=== PATIENT | female | born 1950 | race Caucasian/White ===

== ENCOUNTER 2017-06-28 12:02 | Inpatient (IN) | payer MEDICAID ==
[~2017-06-28] VITALS: Ht 149.8 cm; Wt 105.7 kg
--- NOTE | ~2017-06-28 | PR ---
[place], [place] PROGRESS NOTE NAME: YANIRA PARKER UNIT #: [id number] ROOM: 312 DOCTOR: MATTEO PEÑA MD BIRTHDATE: [birth year] DOS: 07/02/2017 CHIEF COMPLAINT: "Do I get to go home soon." SUMMARY OF THE VISIT: The patient was interviewed in her bedroom. She was resting quietly in bed, but awoke easily and engaged readily in conversation. She reports that she slept well and she is feeling better. She is unclear why she is here, how long she has been here. She does repeat herself frequently with her questions. MENTAL STATUS: She is alert and oriented to person, place, very approximate to time. Mood does seem to be strongly trending towards euthymia. Affect is more appropriate. There is no camille or hypomania. There are no auditory or visual hallucinations. There is some residual paranoia regarding her daughter and other family members. Short-term memory is poor. PLAN: Given the fact that she has significant kidney issues. I will lower her Namenda from 15 mg a day down to 10. Namenda can be adversely affected by renal disorders. We will maintain her Exelon as this is not affected at anyway by renal or hepatic issues. We will continue to engage in individual and garcia milieu activity, returning to the least restrictive environment when psychiatrically stable. MATTEO PEÑA MD CM:PNTRANS 0750 MATTEO PEÑA MD 07/02/17 0926 interface
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
--- NOTE | ~2017-06-28 | PR ---
[place], [place] PROGRESS NOTE NAME: YANIRA PARKER UNIT #: [id number] ROOM: 312 DOCTOR: MATTEO PEÑA MD BIRTHDATE: [birth year] DOS: 06/30/2017 CHIEF COMPLAINT: "No, I don't feel like getting up, thank you." SUMMARY OF THE VISIT: The patient was interviewed in her room. She was resting quietly in bed with an IV infusing. She reports that she is not a morning person and did not want to get up to have breakfast, but this is a norm for her. She was bright and pleasant for the most part and engaging. She was somewhat confused, especially regarding time frames and things that are happening around her, but she was pleasantly confused. MENTAL STATUS: She is alert and oriented to person, more than likely place, not to time. Mood does seem to be fairly euthymic or trending that way. There is no hypomania or camille. There are no overt auditory or visual hallucinations, delusions or paranoia. Short term memory is poor. Long-term is intact. PLAN: Given the fact that she has significant renal disease, I will lower her Namenda dose in half, bringing it from 10 b.i.d. down to 5 b.i.d., as higher doses of the Namenda are generally contraindicated with significant renal impairment. I will max out her Exelon patch; however, from 9.5 to 13.3 mg daily in an effort to maximize potential benefits, engage in individual and garcia milieu activity with the plan to discharge to the least restrictive environment when stable. MATTEO PEÑA MD CM:PNTRANS [id number] MATTEO PEÑA MD 06/30/17 1127 interface
--- NOTE | ~2017-06-28 | PR ---
[place], [place] PROGRESS NOTE NAME: YANIRA PARKER UNIT #: [id number] ROOM: 312 DOCTOR: MATTEO PEÑA MD BIRTHDATE: [birth year] DOS: 07/05/2017 CHIEF COMPLAINT: "I am cold." SUMMARY OF THE VISIT: The patient was interviewed in her room. She has already gotten up, eaten breakfast and quickly returned back to bed. She stated that she was cold, but that the nurse's aide already brought her a blanket. She was fairly bright and pleasant. She did remember that she came from a jail in the [facility]. She is anxious to go back there, stating that her daughter lives in [facility] and that is much closer for her to return there. Overall, she seems much more euthymic and much more pleasant. There has been little to no agitation or aggression. MENTAL STATUS: She is alert and oriented to person, place, but approximate to time. Mood does seem to be strongly trending towards euthymia. Affect is much more appropriate. There is no camille or hypomania. There are no gross psychotic symptoms. Short term memory remains exceedingly poor. PLAN: I will maintain her current dose of Exelon patch and Namenda. Maintain Remeron and Risperdal. Continue to engage in individual and garcia milieu activity, returning to the least restrictive environment when psychiatrically stable. MATTEO PEÑA MD CM:PNTRANS [id number] MATTEO PEÑA MD 07/05/17 1012 interface
--- NOTE | ~2017-06-28 | PR ---
[place], [place] PROGRESS NOTE NAME: YANIRA PARKER UNIT #: [id number] ROOM: 312 DOCTOR: MATTEO PEÑA MD BIRTHDATE: [birth year] DOS: 07/04/2017 CHIEF COMPLAINT: "No, I do not need anything, I do not do breakfast, thank you." SUMMARY OF THE VISIT: The patient was interviewed as she was resting quietly in bed. She awoke briefly to engage in superficial conversation. She tended to minimize all issues, stating that she was fine and she is not a morning person and would prefer to sleep later than to get up and have breakfast. There was no agitation or aggression. There was no mood lability noted and she does seem to be tolerating the current medication regimen well. MENTAL STATUS: She is alert and oriented to person, place, but not time. Mood does seem to be trending solidly towards euthymia. Affect is more appropriate. There is no camille or hypomania. There are no overt auditory or visual hallucinations noted. Short term memory is poor, otherwise she is relatively intact. PLAN: I will renew her Ativan p.r.n. in case she requires intervention. I will lower the Namenda back down to 5 mg b.i.d. because of her renal insufficiency and try not to go over the 10 mg a day dose. Maintain Exelon where it is at. Continue to engage in individual and garcia milieu activity, discharging then when psychiatrically stable. MATTEO PEÑA MD CM:PNTRANS [id number] MATTEO PEÑA MD 07/04/1730 interface
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
--- NOTE | ~2017-06-28 | PR ---
[place], [place] PROGRESS NOTE NAME: YANIRA PARKER UNIT #: [id number] ROOM: 312 DOCTOR: MATTEO PEÑA MD BIRTHDATE: [birth year] DOS: 07/06/2017 CHIEF COMPLAINT: "I don't want to get up, I am not a morning person." SUMMARY OF THE VISIT: The patient was interviewed as she rested in bed once again. She reported that she was cold and requested another blanket, otherwise she voiced no complaint. She voiced a hope that she was able to get out of the hospital in time for [facility]. She did report that she lives in [place] and likes it there and is anxious to return. MENTAL STATUS: She is alert and oriented with some time gaps. Mood does seem to be strongly trending towards euthymia. Affect is more appropriate. There is no camille or psychosis. Short term memory remains poor. PLAN: I will go ahead and compromise with the Namenda and rather than targeting 20 or staying at 10, I will bring her to 15 and leave the dose there. Kidney functions are improving and after I do believe she can tolerate a slightly higher amount of Namenda. We will see if this will impact positively on mood and behavior. Continue to engage her in individual and garcia milieu activity with the plan to return to the least restrictive environment when psychiatrically stable. MATTEO PEÑA MD CM:PNTRANS [id number] MATTEO PEÑA MD 07/06/17 1001 interface
--- NOTE | ~2017-06-28 | PR ---
[place], [place] PROGRESS NOTE NAME: YANIRA PARKER UNIT #: [id number] ROOM: 312 DOCTOR: MATTEO PEÑA MD BIRTHDATE: [birth year] DOS: 07/03/2017 CHIEF COMPLAINT: "I don't feel like getting up, I am not a morning person, but thanks for asking." SUMMARY OF THE VISIT: The patient was interviewed as she was resting in bed. She engaged readily in conversation. She reported that she slept well and is feeling better. She did report that she does not feel like getting up and does not usually eat breakfast, but prefers just to stay in her room until the day progresses further. Nurses report that overall she has been trending towards euthymia. Affect has been more appropriate. There has been no camille or hypomania. No gross psychotic symptoms. MENTAL STATUS: She is alert and oriented to self, place, not necessarily to time. Mood is euthymic. Affect is appropriate. No camille, hypomania or psychosis is noted. Short term memory has gaps. PLAN: I will increase her Namenda to 10 mg in the morning and 5 mg at bedtime to augment the effectiveness of the Exelon patch, continue to engage in individual and garcia milieu activity with the plan to return to the least restrictive environment when psychiatrically stable. MATTEO PEÑA MD CM:PNTRANS 0848 MATTEO PEÑA MD 07/03/17 0929 interface
--- NOTE | ~2017-06-28 | PR ---
[place], [place] PROGRESS NOTE NAME: YANIRA PARKER UNIT #: [id number] ROOM: 312 DOCTOR: MATTEO PEÑA MD BIRTHDATE: [birth year] DOS: 07/01/2017 CHIEF COMPLAINT: "Morning, I am not a morning person, I just want to rest." SUMMARY OF THE VISIT: The patient was interviewed as she rested in bed. She engaged in brief conversation, but was somewhat dismissive. She once again reported that she is not much of a morning person and did not want to come down for breakfast. She was feeling a little under the weather. This may be because of her UTI at this point. Mood mejia she still seems to be persistently depressed and there is a level of confusion about her. She is tolerating the current medication regimen well. MENTAL STATUS: She is alert and oriented with significant time gaps. Mood does still seem to be depressed with a constricted range. There is still delusional system present. There is no camille or hypomania. Short term memory is exceedingly poor. PLAN: I will continue to increase the Namenda, bringing it now to 15 mg a day to augment the effectiveness of the Exelon, continue Risperdal and Remeron, continue to engage her in individual and garcia milieu activity with the plan to return to the least restrictive environment when psychiatrically stable. MATTEO PEÑA MD CM:PNTRANS 1002 1007 MATTEO PEÑA MD 07/01/17 1007 interface
[2017-06-28] MEDS ORDERED: REMERON15 M2 PO (13:50)
[2017-06-28] MEDS ORDERED: NOVOLOG10 ML SQ ×2 (13:57→14:27)
[2017-06-28] MEDS ORDERED: ASPIRIN81 M1 PO (13:57)
[2017-06-28] MEDS ORDERED: ATORVASTATIN CA80 M1 PO (14:00)
[2017-06-28] MEDS ORDERED: CLOPIDOGREL75 MG PO (14:17)
[2017-06-28] MEDS ORDERED: CYCLOBENZAPRINE10 MG PO (14:18)
[2017-06-28] MEDS ORDERED: EXELON1 EACH T (14:19)
[2017-06-28] MEDS ORDERED: FEMARA2.5 MG PO (14:20)
[2017-06-28] MEDS ORDERED: FERROUS SULFAT325 MG PO (14:21)
[2017-06-28] MEDS ORDERED: LASIX40 MG PO (14:21)
[2017-06-28] MEDS ORDERED: GLIMEPIRIDE4 M1 PO (14:22)
[2017-06-28] MEDS ORDERED: LANTUS SOL100 UNIT/1 SQ (14:22)
[2017-06-28] MEDS ORDERED: LATANOPROST2.5 ML OU (14:23)
[2017-06-28] MEDS ORDERED: LEVOTHYROXINE50 MCG PO (14:23)
[2017-06-28] MEDS ORDERED: LISINOPRIL10 M1 PO (14:24)
[2017-06-28] MEDS ORDERED: MAGNESIUM OXID400 MG PO (14:25)
[2017-06-28] MEDS ORDERED: MELATONIN5 M1 PO (14:26)
[2017-06-28] MEDS ORDERED: LOPRESSOR50 M1 PO (14:26)
[2017-06-28] MEDS ORDERED: NAMENDA10 MG PO (14:27)
[2017-06-28] MEDS ORDERED: PROTONIX40 M2 PO (14:31)
[2017-06-28] MEDS ORDERED: KENALOG 0.1%80 GM T (14:33)
[2017-06-28 16:50] VITALS: BP 136/68
[2017-06-28 17:36] VITALS: BP 136/68
[2017-06-28 18:17] LABS: BASO # 0.1 10*3/uL (0.0-0.1); BASO % 0.5 % (0.0-1.0); EOS # 0.5 10*3/uL (0.0-0.4); EOS % 3.8 % (1.0-4.0); HEMATOCRIT 38.3 % (37.0-47.0); HEMOGLOBIN 12.7 g/dl (12.0-16.0); LYMPH # 1.7 10*3/uL (1.3-4.4); MEAN CELL VOLUME 82.9 fl (81.0-99.0); MEAN CORPUSCULAR HGB 27.5 pg (27.0-31.0); MEAN CORPUSCULAR HGB CONC 33.2 g/dl (33.0-37.0); MEAN PLATELET VOLUME 12.1 fl (9.6-12.3); MONO # 1.3 10*3/uL (0.1-1.0); MONO % 10.7 % (3.0-9.0); NEUT # 8.5 10*3/uL (2.3-7.9); NEUT % 69.4 % (47.0-73.0); PLATELET COUNT AUTOMATED 244 10*3/uL (130-400); RED BLOOD COUNT 4.62 10*6/uL (4.10-5.10); RED CELL DISTRI WIDTH 14.9 % (0-14.5); WHITE BLOOD COUNT 12.3 10*3/uL (4.8-10.8)
[2017-06-28 18:33] LABS: ALBUMIN 3.1 gm/dl (3.1-4.5); CREATININE 4.17 mg/dL (0.55-1.02); POTASSIUM 3.8 mmol/L (3.5-5.1); TOTAL PROTEIN 7.1 gm/dL (6.4-8.2)
[2017-06-28 18:41] LABS: THYROID STIM HORMONE (HS) 2.57 uIU/ml (0.358-4.75)
[2017-06-28 18:57] LABS: VITAMIN D, 25-HYDROXY 7.7 ng/mL (30-100)
[2017-06-28 20:07] LABS: BILIRUBIN NEGATIVE (NEGATIVE); BLOOD 2+ (NEGATIVE); CLARITY SL CLOUDY (CLEAR); COLOR YELLOW (YELLOW); GLUCOSE TRACE (NEGATIVE); KETONE NEGATIVE (NEGATIVE); LEUKO ESTERASE 1+ (NEGATIVE); NITRITE NEGATIVE (NEGATIVE); UROBILINOGEN 0.2 E.U./dl (0.2-1.0)
[2017-06-28 20:23] LABS: BACTERIA 3+; EPITHELIAL CELLS 21-30
[2017-06-28 20:24] LABS: RBC 21-30 rbc/hpf (0-2)
[2017-06-28 20:25] LABS: WBC 16-20 wbc/hpf (0-5)
[2017-06-28 21:36] VITALS: BP 140/58
[2017-06-29 07:28] LABS: BASO # 0.1 10*3/uL (0.0-0.1); BASO % 0.7 % (0.0-1.0); EOS # 0.5 10*3/uL (0.0-0.4); EOS % 4.6 % (1.0-4.0); HEMATOCRIT 34.9 % (37.0-47.0); HEMOGLOBIN 11.6 g/dl (12.0-16.0); LYMPH # 2.8 10*3/uL (1.3-4.4); LYMPH % 23.9 % (27.0-41.0); MEAN CELL VOLUME 82.3 fl (81.0-99.0); MEAN CORPUSCULAR HGB 27.4 pg (27.0-31.0); MEAN CORPUSCULAR HGB CONC 33.2 g/dl (33.0-37.0); MEAN PLATELET VOLUME 11.9 fl (9.6-12.3); MONO # 1.3 10*3/uL (0.1-1.0); MONO % 11.4 % (3.0-9.0); NEUT # 6.7 10*3/uL (2.3-7.9); NEUT % 57.6 % (47.0-73.0); PLATELET COUNT AUTOMATED 226 10*3/uL (130-400); RED BLOOD COUNT 4.24 10*6/uL (4.10-5.10); RED CELL DISTRI WIDTH 15.1 % (0-14.5); WHITE BLOOD COUNT 11.7 10*3/uL (4.8-10.8)
[2017-06-29 07:58] LABS: ALBUMIN 2.8 gm/dl (3.1-4.5); CREATININE 3.91 mg/dL (0.55-1.02); POTASSIUM 3.6 mmol/L (3.5-5.1); TOTAL PROTEIN 6.4 gm/dL (6.4-8.2)
[2017-06-29 08:22] VITALS: BP 135/50
[2017-06-29 23:17] VITALS: BP 146/58
[2017-06-30 07:46] LABS: ALBUMIN 2.7 gm/dl (3.1-4.5); CREATININE 3.19 mg/dL (0.55-1.02)
[2017-06-30 07:54] VITALS: BP 136/50
[2017-06-30 20:16] VITALS: BP 113/62
[2017-07-01 07:32] LABS: CREATININE 2.78 mg/dL (0.55-1.02); PHOSPHOROUS 4.1 mg/dL (2.5-4.9); POTASSIUM 4.5 mmol/L (3.5-5.1)
[2017-07-01 07:37] LABS: ALBUMIN 2.8 gm/dl (3.1-4.5)
[2017-07-01 07:58] VITALS: BP 132/51
[2017-07-01 20:00] VITALS: BP 146/68
[2017-07-02 07:23] LABS: ALBUMIN 2.8 gm/dl (3.1-4.5); CREATININE 2.36 mg/dL (0.55-1.02); POTASSIUM 5.1 mmol/L (3.5-5.1)
[2017-07-02 08:03] VITALS: BP 136/87
[2017-07-02 20:13] VITALS: BP 148/66
[2017-07-03 07:46] VITALS: BP 143/60
[2017-07-03 20:00] VITALS: BP 118/64
[2017-07-04 07:07] LABS: ALBUMIN 2.7 gm/dl (3.1-4.5); CREATININE 2.18 mg/dL (0.55-1.02); PHOSPHOROUS 4.3 mg/dL (2.5-4.9); POTASSIUM 5.3 mmol/L (3.5-5.1)
[2017-07-04 07:35] VITALS: BP 144/52
[2017-07-04 20:00] VITALS: BP 156/61
[2017-07-05 08:07] VITALS: BP 151/62
[2017-07-05 12:22] LABS: ALBUMIN 2.8 gm/dl (3.1-4.5); PHOSPHOROUS 3.9 mg/dL (2.5-4.9); POTASSIUM 5.5 mmol/L (3.5-5.1)
[2017-07-05 21:40] VITALS: BP 135/50
[2017-07-06 07:04] LABS: ALBUMIN 2.8 gm/dl (3.1-4.5); CREATININE 1.86 mg/dL (0.55-1.02); PHOSPHOROUS 4.3 mg/dL (2.5-4.9); POTASSIUM 4.8 mmol/L (3.5-5.1)
[2017-07-06 08:00] VITALS: BP 150/68
[2017-07-06 21:14] VITALS: BP 143/58
[2017-07-07 07:06] LABS: ALBUMIN 2.8 gm/dl (3.1-4.5); CREATININE 1.87 mg/dL (0.55-1.02); PHOSPHOROUS 4.2 mg/dL (2.5-4.9); POTASSIUM 4.7 mmol/L (3.5-5.1)
[2017-07-07 08:32] VITALS: BP 138/62
[2017-07-07] MEDS ORDERED: MIRTAZAPINE15 M2 PO (09:52)
[2017-07-07] MEDS ORDERED: NAMENDA-5 PO (09:52)
[2017-07-07] MEDS ORDERED: RISPERIDONE0.5 MG PO (09:52)
[2017-07-07] MEDS ORDERED: EXELON13.3 MG/21 T (09:52)
[2017-07-07] MEDS ORDERED: MEMANTINE HCL10 MG PO (09:52)
[2017-07-07] MEDS ORDERED: VITAMIN D2400 UNIT PO (13:18)
== END 2017-07-07 13:47 | DRG 56 ==
LOC: 3N 12:02
PROVIDERS: Family Medicine; Internal Medicine Hospice and Palliative Medicine; Internal Medicine Nephrology; Psychiatry & Neurology Psychiatry; Student in an Organized Health Care Education/Training Program
DX: G30.0 Alzheimer's disease with early onset (principal); N17.0 Acute kidney failure with tubular necrosis; F33.3 Major depressive disorder, recurrent, severe with psychotic symptoms; E87.1 Hypo-osmolality and hyponatremia; N18.4 Chronic kidney disease, stage 4 (severe); I13.0 Hypertensive heart and chronic kidney disease with heart failure and stage 1 through stage 4 chronic kidney disease, or unspecified chronic kidney disease; F02.81 Dementia in other diseases classified elsewhere, unspecified severity, with behavioral disturbance; Z68.42 Body mass index [BMI] 45.0-49.9, adult; E11.65 Type 2 diabetes mellitus with hyperglycemia; M25.551 Pain in right hip; E55.9 Vitamin D deficiency, unspecified; R82.71 Bacteriuria; B96.20 Unspecified Escherichia coli [E. coli] as the cause of diseases classified elsewhere; D72.810 Lymphocytopenia; K21.9 Gastro-esophageal reflux disease without esophagitis; G47.00 Insomnia, unspecified; M19.90 Unspecified osteoarthritis, unspecified site; I25.10 Atherosclerotic heart disease of native coronary artery without angina pectoris; E66.01 Morbid (severe) obesity due to excess calories; E78.5 Hyperlipidemia, unspecified; E03.9 Hypothyroidism, unspecified; E86.1 Hypovolemia; E87.5 Hyperkalemia; I50.9 Heart failure, unspecified; E11.22 Type 2 diabetes mellitus with diabetic chronic kidney disease; Z86.73 Personal history of transient ischemic attack (TIA), and cerebral infarction without residual deficits; Z85.3 Personal history of malignant neoplasm of breast; Z90.13 Acquired absence of bilateral breasts and nipples; Z90.49 Acquired absence of other specified parts of digestive tract; Z90.710 Acquired absence of both cervix and uterus; Z80.0 Family history of malignant neoplasm of digestive organs; Z82.49 Family history of ischemic heart disease and other diseases of the circulatory system; Z88.5 Allergy status to narcotic agent; Z88.2 Allergy status to sulfonamides; Z88.8 Allergy status to other drugs, medicaments and biological substances; Z91.041 Radiographic dye allergy status; Z79.82 Long term (current) use of aspirin; Z79.4 Long term (current) use of insulin; Z79.899 Other long term (current) drug therapy